=== PATIENT | female | born 1970 | race Caucasian/White ===

== ENCOUNTER → 2016-09-21 | Outpatient (REF) | payer BC ==
[~2016-09-21] MED LIST: MOTR200T44 PO; NORCOTAB PO
[2016-09-21 13:40] LABS: ALBUMIN 3.6 GM/DL (3.2-5.2); ALBUMIN/GLOBULIN RATIO 1.16 (1.00-1.93); ALKALINE PHOSPHATASE 97 U/L (45-117); ALT/SGPT 26 U/L (12-78); AMYLASE 69 U/L (25-115); ANION GAP 7 MEQ/L (8-16); AST/SGOT 18 U/L (15-37); BILIRUBIN,TOTAL 0.4 MG/DL (0.2-1.0); BLOOD UREA NITROGEN 13 MG/DL (7-18); CALCIUM LEVEL 8.6 MG/DL (8.5-10.1); CARBON DIOXIDE LEVEL 27 MEQ/L (21-32); CHLORIDE LEVEL 108 MEQ/L (98-107); CREATININE FOR GFR 0.74 MG/DL (0.55-1.02); GLOMERULAR FILTRATION RATE > 60.0 (>58); GLUCOSE, FASTING 102 MG/DL (70-105); SODIUM LEVEL 142 MEQ/L (136-145); TOTAL PROTEIN 6.7 GM/DL (6.4-8.2)
[2016-09-21 17:49] LABS: BASO # 0.2 K/mm3 (0.0-0.2); EOS # 0.1 K/mm3 (0.0-0.50); EOS % 1.4 % (0.0-3.0); LYMPH % 21.2 % (24.0-44.0); MEAN CORPUSCULAR HEMOGLOBIN 31.2 pg (27.0-33.0); MEAN CORPUSCULAR HGB CONC 32.7 g/dl (32.0-36.5); MEAN CORPUSCULAR VOLUME 95.2 fl (80.0-96.0); MONO # 0.4 K/mm3 (0.0-0.8); NEUTROPHILS # 5.9 K/mm3 (1.8-7.7); NEUTROPHILS % 68.9 % (36.0-66.0); WHITE BLOOD COUNT 8.6 K/mm3 (4.0-10.0)
== END ==
LOC: M LABDRAW1 12:31
PROVIDERS: ATTEND Physician Assistant Medical
DX: R10.84 Generalized abdominal pain (principal); R53.83 Other fatigue

== ENCOUNTER → 2016-09-25 | Outpatient (CLI) | payer BC ==
[~2016-09-25] MED LIST changes: +GASTROGRAFIN SOLUTION 30ML (Q9963) As Ordered ONE; +ISOVUE-370 76% 100ML VIAL (Q9967) As Ordered ONE
--- NOTE | 2016-09-25 14:57 | REPMRS ---
Patient History The patient states she has not had a clinical breast exam in over a year. No known family history of cancer. Digital Mammo Screening Bilat: September 25, 2016 - Exam #: [id number] Bilateral CC and MLO view(s) were taken. Technologist: Elizabeth Smith, Technologist No prior studies available for comparison. FINDINGS: The breast tissue is almost entirely fat. There is no evidence of dominant mass, architectural distortion, or clustered microcalcification typical of malignancy. ASSESSMENT: BI-RADS/ACR category 1 mammogram. Negative. Recommendation Routine screening mammogram in 1 year (for women over age 40). This mammogram was interpreted with the aid of an FDA-approved computer-aided dectection system. Electronically Signed By: Ronnie Ellis MD 09/25/16 [id number]
--- NOTE | 2016-09-25 15:41 | REP ---
CT study of the abdomen and pelvis without and with IV contrast: With oral contrast. History: Generalized abdominal pain. Comparison CT study is from November 02, 2012. CT contrast dose: 100 ml of Isovue-[address] findings: Preliminary digital patternmaker wood radiograph demonstrates an unremarkable bowel gas pattern. There are clips in the right upper quadrant. The lung bases are clear on axial CT images. The liver and the spleen are normal in size and homogeneous in texture on pre and postcontrast CT images. No hepatic mass lesion is seen. No adrenal lesion is observed on either side. There are clips in the gallbladder fossa. The kidneys enhance symmetrically are morphologically intact. No stone, mass or hydronephrosis is seen. No pancreatic abnormality is observed. Small and large intestinal bowel loops are normal in the upper abdomen. A normal appendix is seen in the right lower quadrant. Pelvic CT images demonstrate diverticulosis of the left colon. There is mural thickening and pericolonic stranding with some elongate diverticula in the sigmoid colon consistent with diverticulitis. No abscess or free air is seen. Uterus is surgically absent. No ovarian mass or significant cyst is seen. No pelvic adenopathy is seen. No abdominal wall defect is observed. Urinary bladder is intact. No bony destructive lesion is appreciated. Impression: There is left colonic diverticulosis with mild CT evidence of diverticulitis. No abscess or free air seen. Signed by Duarte Ellis MD 09/25/2016 07:28 P
== END ==
LOC: M RAD 12:58
PROVIDERS: ATTEND Physician Assistant Medical
DX: Z12.31 Encounter for screening mammogram for malignant neoplasm of breast (principal); K57.32 Diverticulitis of large intestine without perforation or abscess without bleeding
CPT/HCPCS: 74178; G0202; Q9963; Q9967

== ENCOUNTER → 2016-12-22 | Outpatient (REF) | payer BC ==
[~2016-12-22] MED LIST changes: +DICY20TA11 PO; -GASTROGRAFIN SOLUTION 30ML (Q9963) As Ordered ONE; -ISOVUE-370 76% 100ML VIAL (Q9967) As Ordered ONE; +VITA100037 PO
[2016-12-22 12:41] LABS: FREE T4 1.09 NG/DL (0.76-1.46)
== END ==
LOC: M LABDRAW1 11:26
PROVIDERS: ATTEND Internal Medicine Gastroenterology
DX: K58.0 Irritable bowel syndrome with diarrhea (principal)

== ENCOUNTER → 2016-12-31 | Outpatient (CLI) | payer BC ==
[~2016-12-31] VITALS: Ht 157.5 cm; Wt 90.7 kg
[~2016-12-31] MED LIST changes: +NS 1,000 ML IV ONE
--- NOTE | 2016-12-31 13:44 | ROOR ---
Patient Name: Clau Damon Procedure Date: 12/31/2016 1:27 PM Date of : 1970 Age: 46 Room: [facility] Gender: Female Note Status: Finalized Procedure: Upper GI endoscopy Indications: Functional Dyspepsia, Heartburn Providers: Parker OLIVO MD Referring MD: GRZEGORZ JIMENEZ Requesting Provider: Medicines: Monitored Anesthesia Care Complications: No immediate complications. Procedure: Pre-Anesthesia Assessment: - The heart rate, respiratory rate, oxygen saturations, blood pressure, adequacy of pulmonary ventilation, and response to care were monitored throughout the procedure. The Endoscope was introduced through the mouth, and advanced to the second part of duodenum. The upper GI endoscopy was accomplished without difficulty. The patient tolerated the procedure well. Findings: Localized mild inflammation was found in the duodenal bulb. The exam of the duodenum was otherwise normal. The examined esophagus was normal. The entire examined stomach was normal. Biopsies were taken with a cold forceps for histology. Impression: - Duodenitis. - Normal esophagus. - Normal stomach. Biopsied. Recommendation: - Continue present medications. - If taking NSAIDS for aches/pains, then would reduce/avoid ibuprofen, naproxen, or other non-steroidal anti-inflammatory drugs. You may use Tylenol. Parker Olivo MD Parker OLIVO MD 12/31/2016 1:43:35 PM This report has been signed electronically. Number of Addenda: 0 Note Initiated On: 12/31/2016 1:27 PM Estimated Blood Loss: Estimated blood loss: none.
--- NOTE | 2016-12-31 14:26 | ROOR ---
Patient Name: Clau Damon Procedure Date: 12/31/2016 1:27 PM Date of : 1970 Age: 46 Room: [facility] Gender: Female Note Status: Finalized Procedure: Colonoscopy Indications: Abnormal CT of the GI tract Providers: Parker OLIVO MD Referring MD: GRZEGORZ JIMENEZ Requesting Provider: Medicines: Monitored Anesthesia Care Complications: No immediate complications. Procedure: Pre-Anesthesia Assessment: - The heart rate, respiratory rate, oxygen saturations, blood pressure, adequacy of pulmonary ventilation, and response to care were monitored throughout the procedure. The Colonoscope was introduced through the anus and advanced to the cecum, identified by appendiceal orifice and ileocecal valve. The colonoscopy was performed without difficulty. The patient tolerated the procedure well. The quality of the bowel preparation was fair. Findings: The perianal and digital rectal examinations were normal. (EXAM: Complete, PREP: Fair/Adequate) A 30 mm polypoid lesion was found in the distal sigmoid colon. The lesion was polypoid. An endoloop was maneuvered over the polyp stalk and closed at the mucosal attachment prior to removal in order to prevent bleeding. Polyp resection was incomplete, and the resected tissue was partially retrieved. Area was successfully injected with 5 mL Spot (carbon black) for tattooing. The polyp was removed with a hot snare. Polyp resection was incomplete, and the resected tissue was partially retrieved. Internal hemorrhoids were found during retroflexion. The hemorrhoids were moderate. Impression: - Preparation of the colon was fair. - Diverticulosis in the sigmoid colon. - Rule out malignancy, 3 cm semi-sessile multilobed polypoid lesion in the distal sigmoid colon (at 25 cm from anal verge). Tissue was partially removed. Removal is INCOMPLETE. Location tattooed for future reference. - Internal hemorrhoids. Recommendation: - If the pathology report is benign, then repeat colonoscopy for retreatment in 3 months. - If the pathology report is malignant, then refer to a surgeon. - Telephone endoscopist for pathology results in 2 weeks. Parker Olivo MD Parker OLIVO MD 12/31/2016 2:25:40 PM This report has been signed electronically. Number of Addenda: 0 Note Initiated On: 12/31/2016 1:27 PM Estimated Blood Loss: Estimated blood loss: none.
[2016-12-31 14:40] VITALS: BP 141/68
== END | disposition home or self-care (01) ==
LOC: M OPP 11:37
PROVIDERS: ATTEND Internal Medicine Gastroenterology
DX: R93.3 Abnormal findings on diagnostic imaging of other parts of digestive tract (principal); R19.4 Change in bowel habit; M10.9 Gout, unspecified; D12.5 Benign neoplasm of sigmoid colon; K64.8 Other hemorrhoids; K57.30 Diverticulosis of large intestine without perforation or abscess without bleeding; K30 Functional dyspepsia; K29.80 Duodenitis without bleeding; I10 Essential (primary) hypertension; K57.92 Diverticulitis of intestine, part unspecified, without perforation or abscess without bleeding; R14.0 Abdominal distension (gaseous); R23.3 Spontaneous ecchymoses; R06.83 Snoring; Z87.891 Personal history of nicotine dependence; Z79.899 Other long term (current) drug therapy

== ENCOUNTER 2017-02-26 05:58 | Inpatient (IN) | payer BC ==
--- NOTE | 2017-02-25 19:25 | HPE ---
DATE OF SCHEDULED ADMISSION: 02/26/2017 CHIEF COMPLAINT: Dysplastic high-grade polyp at the rectosigmoid junction. BRIEF HISTORY OF PRESENT ILLNESS: The patient is a 47-year-old white female who presents with a polyp in the sigmoid colon, close to the rectosigmoid junction. This was evaluated by Dr. Olivo. He performed a biopsy of this and revealed some high-grade dysplasia. Given its sessile nature and presentation on colonoscopy, the concern is that there may be a malignancy within the rest of the specimen as a possibility and the second was that it was not amenable to colonoscopic removal. She was referred for further evaluation/treatment. She has had a history of diverticulitis in the past, but has not had any further episodes. She does have some mild symptoms of crampy left lower quadrant pain intermittently. Her past medical history is significant for a history of cholecystectomy, history of hysterectomy, history of carpal tunnel. Medications include vitamin D. PHYSICAL EXAM: Reveals a 47-year-old female who looks stated age. HEENT is unremarkable. Neck: Supple without adenopathy. Lungs: Clear to auscultation without crackles, wheezes or rhonchi. Heart is regular without murmur. Abdomen is soft, nondistended. No hepatosplenomegaly is appreciated. No significant abnormalities are appreciated. Extremities: Warm, well-perfused. IMPRESSION AND PLAN: The patient had a previous diverticulitis but without any evidence of recurrence of this. I anticipate the diverticulitis has not been recurrent. And most likely this has been some scarring in the area, which has given her some crampy abdominal pain. Her second issue is, of course, the dysplastic sigmoid polyp with high-grade dysplasia, and the recommendation is to proceed with a laparoscopic-assisted low anterior resection/sigmoid colectomy. The risks as well as benefits have been discussed with her at length, those including but not limited to infection, bleeding, damage to surrounding structures including bowel, bladder, nerves, vessels, kidney, ureter, bladder, spleen, pancreas and the possible need for open operative intervention. She also understands that there is a risk of colostomy placement or anastomotic leak. Given her history of diverticulitis in the past, she does have an increased risk for scarring in the area of the pelvic sidewall/ureter area. She understands this as well. The patient will be placed nothing by mouth, IV fluids, mechanical as well as antibiotic bowel prep, given IV fluids, and have thromboembolism deterrents (TEDs), sequentials and fully placed at the time of the operation.
[~2017-02-26] VITALS: Ht 160 cm; Wt 92.3 kg
[2017-02-26] VITALS (8 sets, daily range): BP systolic 137–168; BP diastolic 70–80
[~2017-02-26 05:58] MED LIST changes: -NS 1,000 ML IV ONE; -VITA100037 PO; +VITA100067 PO
[2017-02-26] MEDS ORDERED: LR 1,000 ML IV SCH ×2 (06:15→13:00)
[2017-02-26] MEDS ORDERED: ERTAPENEM SODIUM 1 GM in NS MINI-BAG PLUS 50 ML IV ONE (06:15)
[2017-02-26] MEDS ORDERED: FLAG500T PO (06:43)
[2017-02-26] MEDS ORDERED: [UNRECOGNIZED DRUG - OTHER] (06:43)
[2017-02-26] MEDS ORDERED: fentaNYL 100 MCG/2 ML INJECTION (J3010) As Ordered ONE ×3 (07:06→11:51)
[2017-02-26] MEDS ORDERED: BUPIVACAINE/EPIN 0.25% 30 ML VIAL As Ordered ONE (07:06)
[2017-02-26] MEDS ORDERED: GLUCAGON FOR INJ 1 MG VIAL (J1610) As Ordered ONE (07:06)
[2017-02-26] MEDS ORDERED: MIDAZOLAM INJ 2 MG/2 ML VIAL (J2250) As Ordered ONE (07:06)
[2017-02-26] MEDS ORDERED: PROPOFOL 200 MG/20 ML VIAL As Ordered ONE (08:16)
[2017-02-26] MEDS ORDERED: LIDOCAINE 2% INJ 100 MG/5 ML SDV (FOR ANES.) As Ordered ONE (08:16)
[2017-02-26] MEDS ORDERED: ROCURONIUM BROMIDE 50 MG/5 ML VIAL/SYRINGE As Ordered ONE ×2 (08:16→10:16)
[2017-02-26] MEDS ORDERED: dexameTHASONE 4 MG/ML 1ML VIAL (J1100) As Ordered ONE (08:17)
[2017-02-26] MEDS ORDERED: ONDANSETRON 4MG/2ML VIAL (J2405) As Ordered ONE (08:17)
[2017-02-26] MEDS ORDERED: KETOROLAC 60 MG/2 ML VIAL (J1885) As Ordered ONE (08:17)
[2017-02-26] MEDS ORDERED: GLYCOPYRROLATE INJ 0.2 MG/ML 2 ML VIAL As Ordered ONE (08:21)
[2017-02-26] MEDS ORDERED: NEOSTIGMINE 1MG/ML 5 ML SYRINGE (J2710) As Ordered ONE (08:21)
[2017-02-26] MEDS ORDERED: HYDROmorphone HCL 2 MG/ML 1ML VIAL (J1170) As Ordered ONE ×3 (08:40→12:17)
[2017-02-26] MEDS ORDERED: BUPIVACAINE HCL 0.25% 10 ML VIAL As Ordered ONE (10:53)
[2017-02-26] MEDS ORDERED: BUPIVACAINE LIPOSOME/PF 1.3% 20 ML VIAL (13.3MG/ML)(EXPAREL) As Ordered ONE (10:54)
[2017-02-26] MEDS ORDERED: MORPHINE 1MG/ML IN 0.9% NACL 100ML IV BAG As Ordered ONE (12:21)
[2017-02-26] MEDS ORDERED: LABETALOL HCL 100 MG/20 ML VIAL As Ordered ONE (12:23)
[2017-02-26] MEDS ORDERED: NS 1,000 ML IV SCH (12:27)
[2017-02-26] MEDS ORDERED: MORPHINE 1MG/ML IN 0.9% NACL 100ML IV BAG IV PRN (12:30)
[2017-02-26] MEDS ORDERED: METOCLOPRAMIDE INJ 10MG/2ML VIAL (J2765) IV PRN ×2 (12:30→13:00)
[2017-02-26] MEDS ORDERED: NALOXONE INJ 0.4 MG/1 ML VIAL (J2310) IV PRN (12:30)
[2017-02-26] MEDS ORDERED: NALBUPHINE HCL 10 MG/ML AMP (J2300) IV PRN (12:30)
[2017-02-26] MEDS ORDERED: PROMETHAZINE INJ 25 MG/ML VIAL (J2550) IV PRN (12:30)
[2017-02-26] MEDS ORDERED: ONDANSETRON 4MG/2ML VIAL (J2405) IV PRN ×3 (12:30→13:00)
[2017-02-26] MEDS ORDERED: diphenhydrAMINE INJ 50MG/ML VIAL (J1200) IV PRN (12:30)
[2017-02-26] MEDS ORDERED: IPRATROPIUM 0.5MG/ALBUTEROL 2.5MG INH SOL UD 3ML (DUONEB)(J7620) NEB PRN (12:30)
[2017-02-26] MEDS ORDERED: EPIDURAL/PCA KEYS XX PRN (12:30)
[2017-02-26] MEDS ORDERED: fentaNYL 100 MCG/2 ML INJECTION (J3010) IV PRN (13:00)
[2017-02-26] MEDS ORDERED: MEPERIDINE INJ 25 MG/ML VIAL (J2175) IV PRN (13:00)
[2017-02-26] MEDS ORDERED: PERCOCET 5MG/325MG TAB PO PRN (13:00)
[2017-02-26] MEDS: IPRATROPIUM 0.5MG/ALBUTEROL 2.5MG INH SOL UD 3ML (DUONEB)(J7620) NEB SCH ×2 (14:08→19:18)
[2017-02-26] MEDS: LR 1,000 ML IV SCH ×2 (14:11→20:57)
[2017-02-26] MEDS: PANTOPRAZOLE 40MG INJ (PROTONIX) (C9113) IV SCH (14:41)
[2017-02-26] MEDS: KETOROLAC 30 MG/ML VIAL (J1885) IV PRN (20:58)
[2017-02-27] VITALS (7 sets, daily range): BP systolic 90–151; BP diastolic 50–77
[2017-02-27] MEDS: IPRATROPIUM 0.5MG/ALBUTEROL 2.5MG INH SOL UD 3ML (DUONEB)(J7620) NEB SCH ×4 (02:00→19:24)
[2017-02-27] MEDS: KETOROLAC 30 MG/ML VIAL (J1885) IV PRN ×2 (02:56→10:02)
[2017-02-27 05:57] LABS: MEAN CORPUSCULAR HGB CONC 33.6 g/dl (32.0-36.5); MEAN CORPUSCULAR VOLUME 95.3 fl (80.0-96.0); RED CELL DISTRIBUTION WIDTH 12.5 % (11.5-14.5)
[2017-02-27 06:07] LABS: ANION GAP 7 MEQ/L (8-16); BLOOD UREA NITROGEN 9 MG/DL (7-18); CARBON DIOXIDE LEVEL 23 MEQ/L (21-32); CHLORIDE LEVEL 106 MEQ/L (98-107); GLOMERULAR FILTRATION RATE > 60.0 (>58); GLUCOSE, FASTING 111 MG/DL (70-105); POTASSIUM SERUM 3.6 MEQ/L (3.5-5.1); SODIUM LEVEL 136 MEQ/L (136-145)
[2017-02-27] MEDS: LR 1,000 ML IV SCH ×2 (06:20→14:16)
[2017-02-27] MEDS ORDERED: ERTAPENEM SODIUM 1 GM in NS MINI-BAG PLUS 50 ML IV ONE (06:30)
[2017-02-27] MEDS: PANTOPRAZOLE 40MG INJ (PROTONIX) (C9113) IV SCH (10:01)
[2017-02-27] MEDS ORDERED: KETOROLAC 30 MG/ML VIAL (J1885) IV SCH (12:00)
[2017-02-27] MEDS: ENOXAPARIN 40 MG/0.4 ML SYRINGE (J1650) SC SCH (14:16)
[2017-02-27] MEDS: KETOROLAC 30 MG/ML VIAL (J1885) IV SCH ×2 (17:31→23:59)
[2017-02-28] MEDS: IPRATROPIUM 0.5MG/ALBUTEROL 2.5MG INH SOL UD 3ML (DUONEB)(J7620) NEB SCH ×4 (01:42→19:55)
[2017-02-28 02:00] VITALS: BP 130/73
[2017-02-28 06:00] VITALS: BP 142/73
[2017-02-28] MEDS: KETOROLAC 30 MG/ML VIAL (J1885) IV SCH ×3 (06:39→18:24)
[2017-02-28 09:46] VITALS: BP 115/56
[2017-02-28] MEDS: ENOXAPARIN 40 MG/0.4 ML SYRINGE (J1650) SC SCH (11:06)
[2017-02-28] MEDS: PANTOPRAZOLE 40MG TAB (PROTONIX) PO SCH (11:06)
[2017-02-28] MEDS: NORCO, ANEXSIA 5/325MG TABLET (HYDROcodone/ACETAMINOPHEN) PO PRN ×4 (13:45→21:02)
[2017-02-28 14:00] VITALS: BP 146/67
[2017-02-28 18:00] VITALS: BP 130/68
[2017-02-28 22:00] VITALS: BP 130/80
[2017-03-01] MEDS: KETOROLAC 30 MG/ML VIAL (J1885) IV SCH ×4 (00:13→18:43)
[2017-03-01] MEDS: IPRATROPIUM 0.5MG/ALBUTEROL 2.5MG INH SOL UD 3ML (DUONEB)(J7620) NEB SCH ×4 (01:37→19:45)
[2017-03-01 02:00] VITALS: BP 136/63
[2017-03-01 06:00] VITALS: BP 148/85
[2017-03-01 06:08] LABS: MEAN CORPUSCULAR HEMOGLOBIN 32.1 pg (27.0-33.0); MEAN CORPUSCULAR HGB CONC 33.2 g/dl (32.0-36.5); MEAN CORPUSCULAR VOLUME 96.9 fl (80.0-96.0); RED CELL DISTRIBUTION WIDTH 12.5 % (11.5-14.5); WHITE BLOOD COUNT 7.1 K/mm3 (4.0-10.0)
[2017-03-01 06:13] LABS: ANION GAP 6 MEQ/L (8-16); BLOOD UREA NITROGEN 6 MG/DL (7-18); CALCIUM LEVEL 8.4 MG/DL (8.5-10.1); CARBON DIOXIDE LEVEL 29 MEQ/L (21-32); CHLORIDE LEVEL 105 MEQ/L (98-107); CREATININE FOR GFR 0.67 MG/DL (0.55-1.02); GLOMERULAR FILTRATION RATE > 60.0 (>58); GLUCOSE, FASTING 96 MG/DL (70-105); POTASSIUM SERUM 3.2 MEQ/L (3.5-5.1); SODIUM LEVEL 140 MEQ/L (136-145)
[2017-03-01] MEDS ORDERED: PERCOCET 5MG/325MG TAB PO PRN (08:45)
[2017-03-01] MEDS: ENOXAPARIN 40 MG/0.4 ML SYRINGE (J1650) SC SCH (09:09)
[2017-03-01] MEDS: PANTOPRAZOLE 40MG TAB (PROTONIX) PO SCH (09:09)
[2017-03-01 10:00] VITALS: BP 144/81
[2017-03-01] MEDS ORDERED: ONDANSETRON 4MG/2ML VIAL (J2405) IV PRN (12:00)
[2017-03-01 14:00] VITALS: BP 161/82
[2017-03-01 18:00] VITALS: BP 144/83
[2017-03-01 22:00] VITALS: BP 138/77
[2017-03-02] MEDS: KETOROLAC 30 MG/ML VIAL (J1885) IV SCH ×3 (00:06→11:39)
[2017-03-02] MEDS: IPRATROPIUM 0.5MG/ALBUTEROL 2.5MG INH SOL UD 3ML (DUONEB)(J7620) NEB SCH ×3 (01:22→13:27)
[2017-03-02 02:00] VITALS: BP 141/75
[2017-03-02 06:00] VITALS: BP 144/81
[2017-03-02 07:34] LABS: MEAN CORPUSCULAR HEMOGLOBIN 32.8 pg (27.0-33.0); MEAN CORPUSCULAR VOLUME 96.3 fl (80.0-96.0); RED CELL DISTRIBUTION WIDTH 12.3 % (11.5-14.5); WHITE BLOOD COUNT 9.5 K/mm3 (4.0-10.0)
[2017-03-02 07:39] LABS: BLOOD UREA NITROGEN 9 MG/DL (7-18); CHLORIDE LEVEL 106 MEQ/L (98-107); CREATININE FOR GFR 0.61 MG/DL (0.55-1.02); GLOMERULAR FILTRATION RATE > 60.0 (>58); GLUCOSE, FASTING 100 MG/DL (70-105)
[2017-03-02 07:40] LABS: CALCIUM LEVEL 8.3 MG/DL (8.5-10.1)
[2017-03-02 07:50] LABS: ANION GAP 9 MEQ/L (8-16); CARBON DIOXIDE LEVEL 25 MEQ/L (21-32); SODIUM LEVEL 140 MEQ/L (136-145)
[2017-03-02 07:59] LABS: POTASSIUM SERUM 2.9 MEQ/L (3.5-5.1)
[2017-03-02] MEDS: ENOXAPARIN 40 MG/0.4 ML SYRINGE (J1650) SC SCH (10:15)
[2017-03-02] MEDS: PANTOPRAZOLE 40MG TAB (PROTONIX) PO SCH (10:16)
[2017-03-02] MEDS ORDERED: IBUP-1022 PO (10:56)
[2017-03-02] MEDS ORDERED: POTASSIUM CHLORIDE 10 MEQ SR TABLET PO ONE ×2 (11:00→13:00)
--- NOTE | 2017-03-09 23:18 | RO ---
DATE OF PROCEDURE: 02/26/2017 PREOPERATIVE DIAGNOSIS: Dysplastic sigmoid colon polyp. POSTOPERATIVE DIAGNOSIS: Dysplastic sigmoid colon polyp. PROCEDURE: Laparoscopic sigmoid colectomy with coloproctostomy. SURGEON: Dr. Markell Sharma FUNDRAISING SPECIALIST: Dr. Carlos Manuel Snyder (Dr. Snyder assisted with the colorectal anastomosis and with a rigid sigmoidoscopy, as well as a flexible sigmoidoscopy to identify the location of the polyp.) ANESTHESIA: General endotracheal anesthesia. ESTIMATED BLOOD LOSS: Minimal. FLUIDS: Crystalloid. DESCRIPTION OF PROCEDURE: The patient was brought to the operating room, was given general anesthesia and after adequate anesthesia and preoperative antibiotics were given, the patient was prepped and draped in the usual sterile fashion. Next, a supraumbilical incision was made with a skin knife. Blunt dissection was carried down to the fascia. Fascia was elevated and Veress needle placed into the abdominal cavity, insufflated to 15 mm of pressure. A 12 mm right lower quadrant incision was made and trocar was placed, and the 5 mm right lateral abdominal wall trocar was placed and two 5 mm left-sided abdominal trocars were placed. Next, there were numerous adhesions in the pelvis that were taken down with Harmonic scalpel. Once these were taken down, in the sigmoid colon there was an area of previous diverticulitis that was adherent to the lateral pelvic sidewall. This was taken down with Harmonic scalpel as well. After the white line of Toldt was taken down on the descending colon and after examining the descending colon up to the splenic flexure, all way down to the rectum what was apparent was there was some mild darkened tone to the area of the diverticulitis which would be approximately the area located for the polyp. However, the spot tattooing did not show up on the antimesenteric border at this time. Thus, Dr. Snyder performed a flexible sigmoidoscopy at this time and did, indeed, confirm the placement of the tattoo was on the mesenteric side of the polyp and, indeed, was at the specific area where the previous diverticulitis was. In any case, at this time, continued dissection of the white line of Toldt down along the left pelvic sidewall as well as on the right side was performed. The mesentery of the descending colon/rectosigmoid area was mobilized using the Harmonic scalpel up to the avascular plane. Then, dissection on the right side of the colon was performed going back up towards the vessels and then superior to the vessels where an avascular portion of mesentery was entered, opened up and using this as one of the sites, distally, the vessels were mobilized even better. Then, an [place] vascular load was used to take the vessels. Once this was performed, the descending colon was further mobilized off Gerota's fascia, all the way up to the splenic flexure. But there was quite a bit of redundancy in the sigmoid colon in this area as well as the rectum itself, and I felt that these could reach without undue tension. Thus, the rectosigmoid junction/proximal rectum was transected using a BOB [place] load and the vessels, specifically the rectal vessels and the mesentery in this area, was taken with vascular loads. Clips were placed on the descending colon to make sure that the length was appropriate to be resected and brought out through a transperiumbilical incision. This incision was made with a skin knife. Electrocautery was used to cut through subcutaneous tissue down through the fascia, and the bowel was resected using a BOB stapler. Enterotomy was made within the bowel, and the anvil was placed within this. This 25 EEA stapler was brought out through a staple line at the end of the transected bowel, placed back into the abdominal cavity and then insufflated to15 mm of pressure again. Pelvis was copiously irrigated and then a stapled EEA anastomosis was performed. This was placed under water and air insufflation in the rectum revealed no air leak, donuts were intact. Next, the right lower quadrant 12 mm trocar site was closed with Ernesto-Nunez is a [id number] manner and a #19 Kishor-Rosas drain was left in the bed of the dissection and brought out through a left lateral stab incision. After all trocars were removed, the change of clothes was performed and the midline was copiously irrigated until clear. Estela were used to approximate all incisions. Dry sterile dressing was applied, and the patient was awakened, extubated, brought to the recovery room awake, alert, hemodynamically stable. Sponge and needle counts correct times two.
--- NOTE | 2017-03-09 23:23 | DSES ---
DATE OF ADMISSION: 02/26/2017 DATE OF DISCHARGE: 03/02/2017 PRINCIPAL DIAGNOSIS: Dysplastic sigmoid colon polyp. ASSOCIATED DIAGNOSES: History of cholecystectomy. History of hysterectomy. History of carpal tunnel syndrome. BRIEF HISTORY OF PRESENT ILLNESS: The patient is a 47-year-old female who underwent colonoscopy by Dr. Olivo, which revealed a polyp in the rectosigmoid/sigmoid area with high-grade dysplasia. This was unable to be removed colonoscopically and thus, was referred for surgical resection of this. HOSPITAL COURSE SUMMARY: The patient was admitted with the above diagnosis, underwent laparoscopic sigmoid colectomy and postoperatively she did quite well. She had slow progressive increase in activity and diet was slowly increased from a clear liquid to a regular diet. She was discharged home having minimal pain medication and was taking ibuprofen 600 mg by mouth three times a day with meals and was instructed to follow up next week for staple removal in my office and 2-3 weeks for followup with myself.
== END 2017-03-02 14:05 | disposition home or self-care (01) | DRG 221 ==
LOC: M OR 05:58 → M MSPAV 13:53
PROVIDERS: ADMIT Surgery; ATTEND Surgery
PROC: 0DBN4ZZ Excision of Sigmoid Colon, Percutaneous Endoscopic Approach (ICD-10-PCS; principal; 2017-02-26 07:30)
DX: D12.5 Benign neoplasm of sigmoid colon (principal)

== ENCOUNTER → 2017-07-21 | Outpatient (CLI) | payer BC ==
[~2017-07-21] MED LIST changes: +FLAG500T PO; +IBUP-1022 PO; +[UNRECOGNIZED DRUG - OTHER]
--- NOTE | 2017-07-21 09:14 | REP ---
Clinical: Acute upper respiratory tract infection . Comparison: 07/05/2009 . Technique: PA and lateral. Findings: The mediastinum and cardiac silhouette are normal. The lung guerra are clear and without acute consolidation, effusion, or pneumothorax. The skeletal structures are intact and normal. Impression: 1. No acute cardiopulmonary process. Signed by Adan Garza MD 07/21/2017 09:06 A
== END ==
LOC: M RAD 08:45
PROVIDERS: ATTEND Physician Assistant Medical
DX: J06.9 Acute upper respiratory infection, unspecified (principal)

== ENCOUNTER → 2018-02-01 | Day surgery (SDC) | payer BC ==
[~2018-02-01] MED LIST changes: -DICY20TA11 PO; -FLAG500T PO; -IBUP-1022 PO; +LIDOCAINE 2% INJ 100 MG/5 ML SDV (FOR ANES.) As Ordered; -MOTR200T44 PO; -NORCOTAB PO; +PROPOFOL 200 MG/20 ML VIAL As Ordered; -VITA100067 PO; -[UNRECOGNIZED DRUG - OTHER]
[2018-02-01] MEDS: NS 1,000 ML IV (08:42)
== END | disposition home or self-care (01) ==
LOC: M OPP 07:56
DX: Z08 Encounter for follow-up examination after completed treatment for malignant neoplasm (principal); Z98.0 Intestinal bypass and anastomosis status; D12.3 Benign neoplasm of transverse colon; K57.30 Diverticulosis of large intestine without perforation or abscess without bleeding; K64.8 Other hemorrhoids; Z85.038 Personal history of other malignant neoplasm of large intestine; Z90.710 Acquired absence of both cervix and uterus; Z87.19 Personal history of other diseases of the digestive system; Z87.891 Personal history of nicotine dependence; Z80.6 Family history of leukemia; Z80.0 Family history of malignant neoplasm of digestive organs; Z80.8 Family history of malignant neoplasm of other organs or systems
CPT/HCPCS: 45385

== ENCOUNTER → 2018-02-10 | Outpatient (REF) | payer BC ==
[2018-02-10 12:08] LABS: CHOLESTEROL LEVEL 204 MG/DL (<200); HDL CHOLESTEROL 62 MG/DL (>40); LDL CHOLESTEROL 122.4 MG/DL (<100); NON-HDL-C 142 MG/DL; TRIGLYCERIDES LEVEL 98 MG/DL (<150)
[2018-02-10 12:29] LABS: ESTIMATED AVERAGE GLUCOSE 111 MG/DL (60-110); HEMOGLOBIN A1c 5.5 %
== END ==
LOC: M SFHCPLAZ 09:28
DX: Z13.1 Encounter for screening for diabetes mellitus (principal); Z13.220 Encounter for screening for lipoid disorders
CPT/HCPCS: 83036

== ENCOUNTER → 2018-04-09 | Outpatient (CLI) | payer BC | LOC: M RAD 13:32 | DX: J20.9 Acute bronchitis, unspecified (principal) ==

== ENCOUNTER 2019-02-23 20:21 | Emergency (ER) | payer BC ==
[~2019-02-23] VITALS: Ht 152.4 cm; Wt 95.2 kg
[2019-02-23 20:21] VITALS: BP 146/70
[~2019-02-23 20:21] MED LIST changes: +DICY20TA11 PO; +FLAG500T PO; +HYDR-3715 PO; +IBUP-1022 PO; -LIDOCAINE 2% INJ 100 MG/5 ML SDV (FOR ANES.) As Ordered; +MOTR200T44 PO; -PROPOFOL 200 MG/20 ML VIAL As Ordered; +VITA100067 PO; +[UNRECOGNIZED DRUG - OTHER]
[2019-02-23] MEDS ORDERED: ACYC800T PO (21:14)
== END 2019-02-23 21:23 | disposition home or self-care (01) ==
LOC: M ED 20:21
DX: B02.9 Zoster without complications (principal); I10 Essential (primary) hypertension; K21.9 Gastro-esophageal reflux disease without esophagitis; Z87.891 Personal history of nicotine dependence

== ENCOUNTER → 2020-02-16 | Outpatient (REF) | payer BC ==
[~2020-02-16] MED LIST changes: +ACYC800T PO
[2020-02-16 11:59] LABS: HEMATOCRIT 45.1 % (36.0-47.0); HEMOGLOBIN 14.1 g/dl (12.0-15.5); MEAN CORPUSCULAR HEMOGLOBIN 30.5 pg (27.0-33.0); MEAN CORPUSCULAR HGB CONC 31.3 g/dl (32.0-36.5); MEAN CORPUSCULAR VOLUME 97.4 fl (80.0-96.0); PLATELET COUNT, AUTOMATED 353 10^3/uL (150-450); RED BLOOD COUNT 4.63 10^6/uL (4.00-5.40); WHITE BLOOD COUNT 8.3 10^3/uL (4.0-10.0)
[2020-02-16 12:46] LABS: ALBUMIN 3.6 GM/DL (3.2-5.2); ALT/SGPT 28 U/L (12-78); BILIRUBIN,TOTAL 0.4 MG/DL (0.2-1.0); BLOOD UREA NITROGEN 14 MG/DL (7-18); CARBON DIOXIDE LEVEL 29 MEQ/L (21-32); CHLORIDE LEVEL 108 MEQ/L (98-107); CHOLESTEROL LEVEL 180 MG/DL (<200); CREATININE FOR GFR 0.72 MG/DL (0.55-1.30); GLOMERULAR FILTRATION RATE > 60.0 (>51); GLUCOSE, FASTING 93 MG/DL (70-100); HDL CHOLESTEROL 50 MG/DL (>40); LDL CHOLESTEROL 104 MG/DL (<100); NON-HDL-C 130 MG/DL; POTASSIUM SERUM 4.6 MEQ/L (3.5-5.1); SODIUM LEVEL 142 MEQ/L (136-145); TOTAL PROTEIN 6.8 GM/DL (6.4-8.2); TRIGLYCERIDES LEVEL 132 MG/DL (<150)
[2020-02-16 13:36] LABS: HEMOGLOBIN A1c 6.1 %
== END ==
LOC: M SFHCPLAZ 10:25
PROVIDERS: ATTEND Family Medicine
DX: Z00.00 Encounter for general adult medical examination without abnormal findings (principal); E78.00 Pure hypercholesterolemia, unspecified; Z13.1 Encounter for screening for diabetes mellitus

== ENCOUNTER → 2020-04-17 | Outpatient (REF) | payer BC | LOC: M LAB REF 13:40 | PROVIDERS: ATTEND Physician Assistant | DX: J02.9 Acute pharyngitis, unspecified (principal) ==

== ENCOUNTER → 2020-07-16 | Outpatient (CLI) | payer BC ==
--- NOTE | 2020-07-16 11:57 | REPMRS ---
Patient History The patient states she has not had a clinical breast exam in over a year. Family history of colorectal cancer at age 35 in sister, colorectal cancer in paternal uncle, colorectal cancer in paternal uncle. 3D TOMOSYNTHESIS WAS PERFORMED. The Abdiel Rosenthal lifetime risk for breast cancer is 8.9%. Volpara breast density b. Digital Woman Screen Mammo: July 16, 2020 - Exam #: [id number] Bilateral CC and MLO view(s) were taken. Technologist: Tamara Pettit, Technologist Prior study comparison: September 25, 2016, bilateral digital mammo screening bilat, performed at [facility]. FINDINGS: There are scattered fibroglandular densities. There has been no change in the appearance of the mammogram from the prior studies. There is a mild amount of residual fibroglandular tissue which is fairly symmetric. There is no interval development of dominant mass, architectural distortion, or clustered microcalcification suggestive of malignancy. Assessment: BI-RADS/ACR category 1 mammogram. Negative Mammogram. Recommendation Routine screening mammogram in 1 year (for women over age 40). This mammogram was interpreted with the aid of an FDA-approved computer-aided dectection system. Electronically Signed By: Joseph Adams MD 07/16/20 0647
== END ==
LOC: M WHC 11:11
PROVIDERS: ATTEND Family Medicine
DX: Z12.31 Encounter for screening mammogram for malignant neoplasm of breast (principal)

== ENCOUNTER → 2021-07-10 | Outpatient (CLI) | payer BC ==
[~2021-07-10] MED LIST changes: +ACYC1TAB4 PO; -ACYC800T PO
== END ==
LOC: M LABSMTC 09:44
PROVIDERS: ATTEND Anesthesiology
DX: Z01.818 Encounter for other preprocedural examination (principal); Z11.52 Encounter for screening for COVID-19

== ENCOUNTER 2021-07-15 08:47 | Day surgery (SDC) | payer BC ==
[~2021-07-15] VITALS: Ht 160 cm; Wt 90.9 kg
[~2021-07-15 08:47] MED LIST changes: +LIDOCAINE 2% 100MG/5ML SDV (FOR ANES.) As Ordered ONE; +NS 1,000 ML IV ONE; +propofoL 200 MG/20 ML VIAL As Ordered ONE
--- NOTE | 2021-07-15 11:47 | ROOR ---
Patient Name: Clau Damon Procedure Date: 07/15/2021 11:23 AM Date of : 1970 Age: 51 Room: [facility] Gender: Female Note Status: Finalized Procedure: Colonoscopy Indications: High risk colon cancer surveillance: Personal history of colonic polyps, High risk colon cancer surveillance: Personal history of colon cancer Providers: Parker Olivo MD Referring MD: Nicole Romero Requesting Provider: Medicines: Monitored Anesthesia Care Complications: No immediate complications. Procedure: Pre-Anesthesia Assessment: - The heart rate, respiratory rate, oxygen saturations, blood pressure, adequacy of pulmonary ventilation, and response to care were monitored throughout the procedure. The Colonoscope was introduced through the anus and advanced to the terminal ileum, with identification of the appendiceal orifice and IC valve. The colonoscopy was performed without difficulty. The patient tolerated the procedure well. The quality of the bowel preparation was adequate. Findings: The perianal and digital rectal examinations were normal. A 6 mm polyp was found in the cecum. The polyp was sessile. The polyp was removed with a cold snare. Resection and retrieval were complete. Mild sigmoid diverticulosis and small internal hemorrhoids. There was evidence of a prior end-to-end colo-colonic anastomosis in the sigmoid colon. This was patent and was characterized by healthy appearing mucosa and an intact staple line. Impression: - One 6 mm polyp in the cecum, removed with a cold snare. Resected and retrieved. - Mild sigmoid diverticulosis and small internal hemorrhoids. - Patent end-to-end colo-colonic anastomosis at 18 cm from verge, characterized by healthy appearing mucosa. Recommendation: - Repeat colonoscopy in 3 years for surveillance. Procedure Code(s): --- Professional --- 06734, Colonoscopy, flexible; with removal of tumor(s), polyp(s), or other lesion(s) by snare technique Diagnosis Code(s): --- Professional --- Z98.0, Intestinal bypass and anastomosis status K63.5, Polyp of colon Z85.038, Personal history of other malignant neoplasm of large intestine Z86.010, Personal history of colonic polyps CPT copyright 2019 [employer]. All rights reserved. The codes documented in this report are preliminary and upon metal casket maker review may be revised to meet current compliance requirements. Parker Olivo MD Parker Olivo MD 07/15/2021 11:47:22 AM Electronically signed by Parker Olivo MD Number of Addenda: 0 Note Initiated On: 07/15/2021 11:23 AM Estimated Blood Loss: Estimated blood loss: none.
[2021-07-15 12:11] VITALS: BP 139/63
== END 2021-07-15 12:12 | disposition home or self-care (01) ==
LOC: M OPP 08:47
PROVIDERS: ATTEND Internal Medicine Gastroenterology
DX: K63.5 Polyp of colon (principal); Z85.038 Personal history of other malignant neoplasm of large intestine; Z86.010 Personal history of colon polyps; Z98.0 Intestinal bypass and anastomosis status

== ENCOUNTER 2023-09-08 09:13 | Day surgery (SDC) | payer BC ==
[~2023-09-08] VITALS: Ht 157.5 cm; Wt 90.1 kg
[~2023-09-08 09:13] MED LIST changes: +ALBUTEROL SULFATE 2.5MG/0.5ML INH NEB SOLN INH ONE; +CETACAINE SPRAY 5GM As Ordered ONE; -DICY20TA11 PO; +DICY20TA20 PO; +EPINEPHrine 1MG/10ML SYRINGE 1.5IN As Ordered ONE; -LIDOCAINE 2% 100MG/5ML SDV (FOR ANES.) As Ordered ONE; +LIDOCAINE PRES-FREE 2% 10ML AMP INH ONE; -NS 1,000 ML IV ONE; +OMEP-173 PO; +TIZA2TA PO; -propofoL 200 MG/20 ML VIAL As Ordered ONE
[2023-09-08] MEDS ORDERED: LR 1,000 ML IV SCH ×2 (09:40→11:50)
[2023-09-08] MEDS ORDERED: LIDOCAINE 2% 100MG/5ML SDV (FOR ANES.) As Ordered ONE (10:10)
[2023-09-08] MEDS ORDERED: ROCURONIUM BROMIDE 50MG/5ML VIAL As Ordered ONE (10:10)
[2023-09-08] MEDS ORDERED: SUGAMMADEX SODIUM 500 MG/5 ML VIAL (BRIDION) As Ordered ONE (10:10)
[2023-09-08] MEDS ORDERED: ONDANSETRON 4MG 2ML VIAL As Ordered ONE (10:10)
[2023-09-08] MEDS ORDERED: propofoL 200 MG/20 ML VIAL As Ordered ONE (10:10)
[2023-09-08] MEDS ORDERED: MIDAZOLAM INJ 2MG/2ML VIAL As Ordered ONE (10:10)
[2023-09-08] MEDS ORDERED: fentaNYL 100 MCG/2 ML INJECTION As Ordered ONE (10:10)
[2023-09-08] MEDS ORDERED: ONDANSETRON 4MG 2ML VIAL IV PRN (11:50)
[2023-09-08] MEDS ORDERED: HYDROMORPHONE HCL 0.5 MG/ 0.5 ML SYRINGE IV PRN (11:50)
[2023-09-08] MEDS ORDERED: fentaNYL 100 MCG/2 ML INJECTION IV PRN (11:50)
[2023-09-08] MEDS ORDERED: oxyCODONE 5MG TAB PO PRN (11:50)
[2023-09-08 13:05] VITALS: BP 137/68; TEMP 97; O2SAT 95
== END 2023-09-08 13:25 | disposition home or self-care (01) ==
LOC: M SDC 09:13
PROVIDERS: ATTEND Internal Medicine Critical Care Medicine
DX: C34.31 Malignant neoplasm of lower lobe, right bronchus or lung (principal); C77.1 Secondary and unspecified malignant neoplasm of intrathoracic lymph nodes; Z90.49 Acquired absence of other specified parts of digestive tract; Z90.710 Acquired absence of both cervix and uterus; Z86.010 Personal history of colon polyps; K21.9 Gastro-esophageal reflux disease without esophagitis; Z79.899 Other long term (current) drug therapy; Z87.891 Personal history of nicotine dependence
CPT/HCPCS: 31652; 88173; 88305; J1100; J2250; J2405; J3010

== ENCOUNTER → 2024-06-20 | Outpatient (CLI) | payer BC ==
[~2024-06-20] MED LIST changes: -ALBUTEROL SULFATE 2.5MG/0.5ML INH NEB SOLN INH ONE; -CETACAINE SPRAY 5GM As Ordered ONE; -EPINEPHrine 1MG/10ML SYRINGE 1.5IN As Ordered ONE; -LIDOCAINE PRES-FREE 2% 10ML AMP INH ONE
== END ==
LOC: M LAB 12:25
PROVIDERS: ATTEND Nurse Practitioner Family
DX: G93.6 Cerebral edema (principal); R56.9 Unspecified convulsions; C34.90 Malignant neoplasm of unspecified part of unspecified bronchus or lung; C79.31 Secondary malignant neoplasm of brain

== ENCOUNTER → 2024-09-14 | Outpatient (CLI) | payer BC ==
[2024-09-14 13:05] LABS: BASO # 0.1 10^3/uL (0.0-0.2); BASO % 1.3 % (0.0-1.0); EOS # 0.1 10^3/uL (0.0-0.5); EOS % 2.1 % (0.0-3.0); HEMOGLOBIN 15.4 g/dl (12.0-15.5); LYMPH # 1.1 10^3/uL (1.5-5.0); LYMPH % 17.5 % (24.0-44.0); MEAN CORPUSCULAR HEMOGLOBIN 31.4 pg (27.0-33.0); MEAN CORPUSCULAR HGB CONC 32.8 g/dl (32.0-36.5); MEAN CORPUSCULAR VOLUME 95.9 fl (80.0-96.0); MONO # 0.6 10^3/uL (0.0-0.8); MONO % 9.2 % (2.0-8.0); NEUTROPHILS # 4.4 10^3/uL (1.5-8.5); NEUTROPHILS % 69.3 % (36.0-66.0); PLATELET COUNT, AUTOMATED 255 10^3/uL (150-450); WHITE BLOOD COUNT 6.3 10^3/uL (4.0-10.0)
[2024-09-14 13:33] LABS: VALPROIC ACID (DEPAKOTE) 109.9 UG/ML (50.0-100.0)
[2024-09-14 13:34] LABS: ALBUMIN 3.5 G/DL (3.2-5.2); ALKALINE PHOSPHATASE 99 U/L (35-104); ALT/SGPT 17 U/L (7.0-40); AST/SGOT 13 U/L (<34); BILIRUBIN,TOTAL 0.4 MG/DL (0.3-1.2); BLOOD UREA NITROGEN 22 MG/DL (9-23); CALCIUM LEVEL 9.2 MG/DL (8.5-10.1); CARBON DIOXIDE LEVEL 29 MMOL/L (20-31); CHLORIDE LEVEL 108 MMOL/L (98-107); CREATININE FOR GFR 0.81 MG/DL (0.55-1.30); GLOMERULAR FILTRATION RATE > 60.0 (>51); GLUCOSE, FASTING 70 MG/DL (60-100); POTASSIUM SERUM 4.6 MMOL/L (3.5-5.1); SODIUM LEVEL 142 MMOL/L (136-145); TOTAL PROTEIN 6.2 G/DL (5.7-8.2)
[2024-09-14 13:38] LABS: FREE T4 1.12 NG/DL (0.89-1.76); THYROID STIMULATING HORMONE 3.092 uIU/ML (0.55-4.78)
== END ==
LOC: M LAB 12:10
PROVIDERS: ATTEND Nurse Practitioner Family
DX: Z51.81 Encounter for therapeutic drug level monitoring (principal); F41.9 Anxiety disorder, unspecified

== ENCOUNTER → 2024-09-18 | Outpatient (CLI) | payer BC | LOC: M LAB 10:54 | PROVIDERS: ATTEND Nurse Practitioner Family | DX: G40.909 Epilepsy, unspecified, not intractable, without status epilepticus (principal); Z51.81 Encounter for therapeutic drug level monitoring ==

== ENCOUNTER 2024-10-31 11:21 | Day surgery (SDC) | payer BC ==
[~2024-10-31] VITALS: Ht 167.6 cm; Wt 73.5 kg
[~2024-10-31 11:21] MED LIST changes: +BUSP10TA PO; +CITA10TA7 PO; +CLON0.5T2 PO; +DIVA250T67 PO; +LIDOCAINE 2% 100MG/5ML SDV (FOR ANES.) As Ordered ONE; +PANT40TA29 PO; +PEPC1TAB5 PO; +propofoL 200 MG/20 ML VIAL As Ordered ONE
[2024-10-31] MEDS ORDERED: fentaNYL 100 MCG/2 ML INJECTION As Ordered ONE (11:36)
[2024-10-31 13:06] VITALS: TEMP 97.6
[2024-10-31 13:25] VITALS: BP 104/61; O2SAT 99
== END 2024-10-31 13:28 | disposition home or self-care (01) ==
LOC: M OPP 11:21
PROVIDERS: ATTEND Internal Medicine Gastroenterology
DX: Z12.11 Encounter for screening for malignant neoplasm of colon (principal); Z86.0100 Personal history of colon polyps, unspecified; Z85.038 Personal history of other malignant neoplasm of large intestine; Z98.0 Intestinal bypass and anastomosis status; K29.50 Unspecified chronic gastritis without bleeding; K21.9 Gastro-esophageal reflux disease without esophagitis; Z85.118 Personal history of other malignant neoplasm of bronchus and lung; Z85.841 Personal history of malignant neoplasm of brain; Z92.21 Personal history of antineoplastic chemotherapy; Z92.3 Personal history of irradiation; Z88.8 Allergy status to other drugs, medicaments and biological substances; Z79.899 Other long term (current) drug therapy; Z80.1 Family history of malignant neoplasm of trachea, bronchus and lung; Z80.8 Family history of malignant neoplasm of other organs or systems
CPT/HCPCS: 43239; 45378; 88305; J3010

== ENCOUNTER → 2025-08-07 | Outpatient (CLI) | payer BC ==
[~2025-08-07] MED LIST changes: -IBUP-1022 PO; +IBUP600T42 PO; -LIDOCAINE 2% 100MG/5ML SDV (FOR ANES.) As Ordered ONE; -propofoL 200 MG/20 ML VIAL As Ordered ONE
[2025-08-07 11:37] LABS: BASO # 0.1 10^3/uL (0.0-0.2); BASO % 0.9 % (0.0-1.0); EOS # 0.1 10^3/uL (0.0-0.5); EOS % 1.9 % (0.0-3.0); LYMPH # 1.6 10^3/uL (1.5-5.0); LYMPH % 23.6 % (24.0-44.0); MONO # 0.6 10^3/uL (0.0-0.8); MONO % 9.1 % (2.0-8.0); NEUTROPHILS # 4.4 10^3/uL (1.5-8.5); NEUTROPHILS % 64.1 % (36.0-66.0); PLATELET COUNT, AUTOMATED 292 10^3/uL (150-450)
[2025-08-07 12:15] LABS: ALT/SGPT 14.0 U/L (7.0-40); AST/SGOT 18.0 U/L (<34); CALCIUM LEVEL 8.6 MG/DL (8.5-10.1); CARBON DIOXIDE LEVEL 30.0 MMOL/L (20-31); CHLORIDE LEVEL 106.0 MMOL/L (98-107); CREATININE FOR GFR 0.78 MG/DL (0.55-1.30); GLOMERULAR FILTRATION RATE 88.5 (>51); POTASSIUM SERUM 4.5 MMOL/L (3.5-5.1); SODIUM LEVEL 141.0 MMOL/L (136-145)
== END ==
LOC: M LAB 11:00
PROVIDERS: ATTEND Internal Medicine Medical Oncology
DX: C34.90 Malignant neoplasm of unspecified part of unspecified bronchus or lung (principal)

== ENCOUNTER → 2025-08-22 | Outpatient (CLI) | payer BC ==
[2025-08-22 10:41] LABS: VITAMIN B12 LEVEL 832.0 PG/ML (211-911)
[2025-08-22 10:42] LABS: FREE T4 1.14 NG/DL (0.89-1.76)
[2025-08-24 08:58] LABS: CERULOPLASMIN 22.0 mg/dL (14-48)
[2025-08-24 18:42] LABS: VITAMIN E(ALPHA TOCOPHEROL) 15.2 mg/L (5.7-19.9); VITAMIN E(GAMMA TOCOPHEROL) 1.0 mg/L (<=4.3)
[2025-08-25 03:28] LABS: COPPER PLASMA 94.0 mcg/dL (70-175)
[2025-08-26 13:53] LABS: VITAMIN B6,PYRIDOXAL PHOSPHATE 5.0 ng/mL (2.1-21.7)
[2025-08-30 08:18] LABS: VITAMIN B1 LEVEL WHOLE BLOOD 149.0 nmol/L (78-185)
== END ==
LOC: M LAB 09:09
PROVIDERS: ATTEND Psychiatry & Neurology Neurology
DX: D51.9 Vitamin B12 deficiency anemia, unspecified (principal); E07.9 Disorder of thyroid, unspecified; R26.81 Unsteadiness on feet; E61.0 Copper deficiency